=== PATIENT | female | born 1990 | race African-American/Black ===

== ENCOUNTER 2017-02-19 00:44 | Emergency (ER) | payer OTHER ==
[~2017-02-19] VITALS: Ht 170.2 cm; Wt 45.4 kg
[2017-02-19 03:33] LABS: BASOPHIL% 0.5 % (0-2.5); EOSINOPHIL% 0.6 % (0.0-7.0); HEMATOCRIT 36.4 % (35.0-45.0); LYMPHOCYTE# 1.9 X10e3 (1.0-3.5); LYMPHOCYTE% 27.2 % (17.0-45.0); MEAN CELL VOLUME 86.1 FL (83-96); MEAN CORPUSCULAR HEMOGLOBIN 28.4 PG (28-34); MEAN PLATELET VOLUME 8.9 FL (6.5-11.5); MONOCYTE# 0.4 X10e3 (0-1.0); NEUTROPHIL# 4.6 X10e3 (1.5-7.1); NEUTROPHIL% 65.7 % (40-75); PLATELET COUNT 213 X10e3 (140-420); RED BLOOD COUNT 4.22 X10e (3.90-5.30); RED CELL DISTRIBUTION WIDTH 13.9 % (11.0-15.5); WHITE BLOOD COUNT 7.1 X10e3 (4.0-10.5)
[2017-02-19 03:34] LABS: DIFF IND NO
[2017-02-19 03:47] LABS: INR 1.1; PROTHROMBIN TIME (PATIENT) 11.7 SECONDS (10.0-11.7)
[2017-02-19 03:56] LABS: BUN/CREATININE RATIO 18.75; CALCIUM SERUM 8.9 mg/dL (8.4-10.2); CREATININE SERUM 0.8 mg/dL (0.6-1.4); GLOM FILT RATE Estimated 119.7 mL/min (>60); POTASSIUM 3.4 mmol/L (3.5-5.1)
== END 2017-02-19 04:40 | disposition home or self-care (01) ==
LOC: CED 00:44
PROVIDERS: Emergency Medicine
DX: L29.9 Pruritus, unspecified (principal)
CPT/HCPCS: 36415; 80048; 85025; 85610; 99283